=== PATIENT | male | born 1935 | race Caucasian/White ===

== ENCOUNTER → 2019-01-02 | Outpatient (CLI) | payer MEDICARE, BC ==
[~2019-01-02] MED LIST: BACT800T5 PO; PERC5TAB12 PO
--- NOTE | 2019-01-06 20:33 | SLEEPHOME ---
DATE OF PROCEDURE: 01/02/2019 ORDERED BY: Dr. Vázquez Diagnostic home sleep testing was performed due to concern for the obstructive sleep apnea syndrome in this patient with a history of excessive somnolence, snoring and nonrestorative sleep who has comorbidities of hypertension and diabetes. For testing a nocturnal T3 respiratory monitoring device was used. Continuous record was made of pulse, oxygen saturation, airflow, chest, abdominal strain and body position. 10 hours and 59 minutes of data were reviewed. There were 7 hours and 46 minutes marked as time in bed. During the interval marked time in bed there were 415 respiratory events identified of 10 seconds in duration or greater for a respiratory event index of 53.3. The events were of various pattern; 169 central events were appreciated, there were 45 mixed events, 81 pure apneas and 120 hypopneas. Baseline pulse rate was 68 beats per minute, pulse rate ranged 46-92. Baseline saturation was 89%. Lowest oxygen saturation recorded 74%. Testing was performed in both the supine and nonsupine positions. IMPRESSION: Abnormal home sleep testing with repetitive respiratory events and oxygen desaturations to 74% with a respiratory event index of 53.3 is consistent with the obstructive sleep apnea syndrome. Given the frequency of central events identified, a more complex disorder may be present. RECOMMENDATIONS: The patient should be encouraged to undergo a formal sleep evaluation.
== END ==
LOC: M SLEEP HO 11:17
PROVIDERS: ATTEND Internal Medicine Pulmonary Disease
DX: G47.30 Sleep apnea, unspecified (principal)

== ENCOUNTER → 2019-02-14 | Outpatient (CLI) | payer MEDICARE, BC ==
--- NOTE | 2019-02-21 12:48 | SLEEPCENT ---
DATE OF STUDY: 02/14/2019 ORDERING PROVIDER: Dr. Vázquez Nocturnal polysomnography was performed for evaluation of sleep physiology in this patient with a history consistent with the obstructive sleep apnea syndrome on home testing supporting that diagnosis. 8 hours and 29 minutes of data were reviewed. There were 403.5 minutes of sleep identified. Sleep latency was normal at 24 minutes. Rapid eye movement (REM) latency was short at 55 minutes. Sleep architecture showed fragmentation. Overall sleep efficiency was 80.2%. Improvement was seen late in the study after interventions were made. The electrocardiogram showed sinus rhythm with an average heart rate of beats per minute. Electroencephalogram (EEG) showed reasonably normal waveforms for awake and sleep. There were 175 respiratory events identified of 10 seconds in duration or greater for an apnea-hypopnea index of 26. Events were associated with oxygen desaturations into the low 80s, having clearly established the presence of obstructive sleep apnea syndrome early in testing. The study was stopped shortly after midnight for the application of pressure therapy. The patient was fit with a [employer]Med AirFit F20 full face mask of large size. 4 cm of water pressure were applied to the circuit, and the lights were extinguished. Pressure titration proceeded; and despite optimal mask fit and minimal air leak, progressive increases in continuous positive airway pressure (CPAP) pressure were insufficient to address the patient's events. The patient was changed to a bilevel device. Recurrence of central apneas prompted the addition of a backup rate. Subsequent hypoxemia prompted the addition of supplemental oxygen. An optimal pressure therapy was unable to be identified during this testing. Best sleep, however, was seen on a bilevel pressure device, inspiratory 12 over expiratory 8 with a backup rate of 6 and 2 liters of oxygen bled through the system. 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 Apnea-hypopnea index 26, 175 respiratory events, 77 of which were central or mixed. RECOMMENDATION: Nightly use of bilevel pressure therapy, inspiratory 12 over expiratory 8 with a backup rate of 6 and 2 liters of oxygen. Given the difficulty the patient had during titration, close clinical followup, and it was recommended should symptoms persist, a low threshold for full-night re-titration should be considered.
== END ==
LOC: M SLEEP 19:18
PROVIDERS: ATTEND Internal Medicine Pulmonary Disease
DX: G47.30 Sleep apnea, unspecified (principal)

== ENCOUNTER → 2019-07-12 | Outpatient (REF) | payer MEDICARE, BC ==
[2019-07-12 13:53] LABS: ALBUMIN 3.8 GM/DL (3.2-5.2); CALCIUM LEVEL 8.5 MG/DL (8.8-10.2); CREATININE FOR GFR 1.31 MG/DL (0.70-1.30); GLOMERULAR FILTRATION RATE 55.9 (>35); MAGNESIUM LEVEL 2.1 MG/DL (1.8-2.4); PHOSPHORUS LEVEL 3.5 MG/DL (2.5-4.9); POTASSIUM SERUM 4.5 MEQ/L (3.5-5.1); URIC ACID 3.7 MG/DL (3.5-7.2)
== END ==
LOC: M LAB REF 13:05
PROVIDERS: ATTEND Internal Medicine Nephrology
DX: N18.3 Chronic kidney disease, stage 3 (moderate) (principal); E11.22 Type 2 diabetes mellitus with diabetic chronic kidney disease; D63.1 Anemia in chronic kidney disease
CPT/HCPCS: 51798; 80069; 83735; 84550; G0463

== ENCOUNTER → 2020-04-17 | Outpatient (REF) | payer MEDICARE, BC ==
[2020-04-17 17:59] LABS: APPEARANCE, URINE CLEAR (CLEAR); BACTERIA, URINE AUTO NEGATIVE (NEGATIVE); BILIRUBIN, URINE AUTO NEGATIVE (NEGATIVE); BLOOD, URINE BLOOD NEGATIVE (NEGATIVE); COLOR, URINE YELLOW (YELLOW); GLUCOSE, URINE (UA) AUTO NEGATIVE (NEGATIVE); KETONE, URINE AUTO NEGATIVE (NEGATIVE); LEUKOCYTE ESTERASE, URINE AUTO NEGATIVE (NEGATIVE); NITRITE, URINE AUTO NEGATIVE (NEGATIVE); PROTEIN, URINE AUTO NEGATIVE (NEGATIVE); RBC, URINE AUTO 1 /HPF (0-3); SPECIFIC GRAVITY URINE AUTO 1.009 (1.002-1.035); SQUAMOUS EPITHELIAL CELL UR AU 0 /HPF (0-6); UROBILINOGEN, URINE AUTO 0.2 mg/dL (0.0-2.0); WBC, URINE AUTO 1 /HPF (0-3)
== END ==
LOC: M SMT 17:05
PROVIDERS: ATTEND Nurse Practitioner Family
DX: R32 Unspecified urinary incontinence (principal)
CPT/HCPCS: 51798; 81001; 87086; G0463

== ENCOUNTER → 2021-05-20 | Outpatient (REF) | payer MEDICARE, BC | LOC: M LAB REF 16:49 | PROVIDERS: ATTEND Nurse Practitioner Family | DX: N39.0 Urinary tract infection, site not specified (principal); N18.31 Chronic kidney disease, stage 3a ==

== ENCOUNTER → 2021-11-18 | Outpatient (REF) | payer MEDICARE, BC ==
[2021-11-18 19:43] LABS: BACTERIA, URINE AUTO 1+ (NEGATIVE); MUCUS, URINE SMALL (NEGATIVE); RBC, URINE AUTO 76 /HPF (0-3); SQUAMOUS EPITHELIAL CELL UR AU 1 /HPF (0-6); TRANSITIONAL EPITHELIAL AUTO <1 /HPF; WBC, URINE AUTO 31 /HPF (0-3)
== END ==
LOC: M LAB REF 16:40
PROVIDERS: ATTEND Nurse Practitioner Family
DX: R31.9 Hematuria, unspecified (principal)

== ENCOUNTER → 2022-07-12 | Outpatient (CLI) | payer MEDICARE, BC ==
[~2022-07-12] MED LIST changes: +ALLE180T33 PO; +ASPI81TA26 PO; +BREO1INH INH; +COMBAER6 INH; +DOCU-153 PO; +FINA5TAB2 PO; +FLOM0.4C39 PO; +GABA-1171 PO; +INCR1INH INH; +JARD1TAB PO; +LEXA1TAB PO; +OMEP1CAP73 PO; +OXYB-54 PO; +PENT400T47 PO; +PX S0.65; +ROSU10TA6 PO; +SYNT50TA PO; +TOUJ300I2 SC; +TRUL10IN SC; +VENTAER INH; +prevagen PO
== END ==
LOC: M LABSMTC 10:22
PROVIDERS: ATTEND Anesthesiology
DX: Z01.812 Encounter for preprocedural laboratory examination (principal); Z20.822 Contact with and (suspected) exposure to COVID-19

== ENCOUNTER 2022-07-16 12:56 | Day surgery (SDC) | payer MEDICARE, BC ==
[~2022-07-16] VITALS: Ht 175.3 cm; Wt 83.4 kg
[~2022-07-16 12:56] MED LIST changes: +ceFAZolin SOD 2 GM in IV 1 EA IV ONE
[2022-07-16] MEDS ORDERED: LIDOCAINE 2% 100MG/5ML SDV (FOR ANES.) As Ordered ONE (13:12)
[2022-07-16] MEDS ORDERED: propofoL 200 MG/20 ML VIAL As Ordered ONE (13:12)
[2022-07-16] MEDS ORDERED: ONDANSETRON 4MG 2ML VIAL As Ordered ONE (13:12)
[2022-07-16] MEDS ORDERED: MIDAZOLAM INJ 2MG/2ML VIAL As Ordered ONE (13:13)
[2022-07-16] MEDS ORDERED: fentaNYL 100 MCG/2 ML INJECTION As Ordered ONE (13:16)
[2022-07-16] MEDS ORDERED: ROCURONIUM BROMIDE 50MG/5ML VIAL As Ordered ONE (13:17)
[2022-07-16] MEDS ORDERED: LR 1,000 ML IV SCH ×2 (13:25→15:20)
[2022-07-16] MEDS ORDERED: SUGAMMADEX SODIUM 500 MG/5 ML VIAL (BRIDION) As Ordered ONE (13:41)
[2022-07-16] MEDS ORDERED: oxyCODONE 5MG TAB PO PRN (15:20)
[2022-07-16] MEDS ORDERED: fentaNYL 100 MCG/2 ML INJECTION IV PRN (15:20)
[2022-07-16] MEDS ORDERED: ONDANSETRON 4MG 2ML VIAL IV PRN (15:20)
[2022-07-16] MEDS ORDERED: MACR100C43 PO (15:22)
[2022-07-16] MEDS ORDERED: PYRI1TAB5 PO (15:23)
[2022-07-16] MEDS ORDERED: OXYB5TAB10 PO (15:23)
[2022-07-16 17:04] VITALS: BP 133/71
== END 2022-07-16 17:21 | disposition home or self-care (01) ==
LOC: M SDC 12:56
PROVIDERS: ATTEND Urology
DX: C67.9 Malignant neoplasm of bladder, unspecified (principal); I48.91 Unspecified atrial fibrillation; K21.9 Gastro-esophageal reflux disease without esophagitis; J44.9 Chronic obstructive pulmonary disease, unspecified; K44.9 Diaphragmatic hernia without obstruction or gangrene; I10 Essential (primary) hypertension; E11.9 Type 2 diabetes mellitus without complications; Z79.4 Long term (current) use of insulin; Z87.891 Personal history of nicotine dependence; E78.5 Hyperlipidemia, unspecified; Z88.8 Allergy status to other drugs, medicaments and biological substances; Z79.82 Long term (current) use of aspirin; Z79.899 Other long term (current) drug therapy; Z79.51 Long term (current) use of inhaled steroids
CPT/HCPCS: 52240; 88305; J1100; J2405

== ENCOUNTER → 2022-08-07 | Outpatient (REF) | payer MEDICARE, BC ==
[~2022-08-07] MED LIST changes: +MACR100C43 PO; +OXYB5TAB10 PO; +PYRI1TAB5 PO; -ceFAZolin SOD 2 GM in IV 1 EA IV ONE
[2022-08-07 17:23] LABS: APPEARANCE, URINE MANUAL HAZY (CLEAR); COLOR, URINE MANUAL YELLOW (YELLOW)
[2022-08-07 17:24] LABS: BILIRUBIN, URINE MANUAL NEGATIVE (NEGATIVE); BLOOD URINE MANUAL POSITIVE (NEGATIVE); GLUCOSE, URINE (UA) MANUAL 4+(1000 MG/DL) mg/dL (NEGATIVE); KETONE, URINE MANUAL NEGATIVE (NEGATIVE); LEUKOCYTE ESTERASE, URINE MAN POSITIVE (NEGATIVE); NITRITE, URINE MANUAL NEGATIVE (NEGATIVE); PROTEIN, URINE MANUAL NEGATIVE (NEGATIVE); UROBILINOGEN, URINE MANUAL NORMAL (NORMAL)
[2022-08-07 17:37] LABS: BACTERIA, URINE NONE SEEN; HYALINE CAST, URINE NONE SEEN /lpf (0-1); RBC, URINE NONE SEEN /hpf (0-3); SQUAMOUS EPITHELIAL CELL URINE NONE SEEN /hpf (SMALL AMT); WBC, URINE 15-20 /hpf (0-3)
== END ==
LOC: M SMT 16:42
PROVIDERS: ATTEND Physician Assistant
DX: C67.8 Malignant neoplasm of overlapping sites of bladder (principal)

== ENCOUNTER 2024-06-16 01:35 | Emergency (ER) | payer MEDICARE, BC ==
[~2024-06-16] VITALS: Ht 177.8 cm; Wt 85.5 kg
[~2024-06-16 01:35] MED LIST changes: -DOCU-153 PO; -OXYB5TAB10 PO; +OXYB5TAB14 PO; -ROSU10TA6 PO; +ROSU10TA61 PO; +STOO100C30 PO
[2024-06-16 01:38] VITALS: TEMP 97.4
[2024-06-16 03:51] LABS: BASO % 0.4 % (0.0-1.0); EOS # 0.3 10^3/uL (0.0-0.5); EOS % 4.3 % (0.0-3.0); HEMATOCRIT 34.5 % (42.0-52.0); HEMOGLOBIN 11.4 g/dl (13.5-17.5); LYMPH % 13.1 % (24.0-44.0); MEAN CORPUSCULAR HEMOGLOBIN 31.1 pg (27.0-33.0); MONO # 0.6 10^3/uL (0.0-0.8); MONO % 8.1 % (2.0-8.0); NEUTROPHILS # 5.6 10^3/uL (1.5-8.5); NEUTROPHILS % 73.7 % (36.0-66.0); PLATELET COUNT, AUTOMATED 183 10^3/uL (150-450); RED BLOOD COUNT 3.67 10^6/uL (4.30-6.10); WHITE BLOOD COUNT 7.6 10^3/uL (4.0-10.0)
[2024-06-16 04:02] LABS: INR 0.99; PARTIAL THROMBOPLASTIN TIME 28.5 SECONDS (24.8-34.2); PROTHROMBIN TIME 13.4 SECONDS (12.5-14.5)
[2024-06-16 04:16] LABS: CALCIUM LEVEL 8.8 MG/DL (8.3-10.6); CREATININE FOR GFR 1.97 MG/DL (0.70-1.30); GLOMERULAR FILTRATION RATE 34.5 (>35); POTASSIUM SERUM 4.7 MMOL/L (3.5-5.1)
[2024-06-16 04:29] LABS: PROCALCITONIN 0.05 ng/ml
[2024-06-16 05:21] VITALS: BP 182/84; O2SAT 97
== END 2024-06-16 05:25 | disposition home or self-care (01) ==
LOC: M ED 01:35
DX: R31.9 Hematuria, unspecified (principal); K40.90 Unilateral inguinal hernia, without obstruction or gangrene, not specified as recurrent; K21.9 Gastro-esophageal reflux disease without esophagitis; Z86.79 Personal history of other diseases of the circulatory system; Z90.49 Acquired absence of other specified parts of digestive tract; Z79.52 Long term (current) use of systemic steroids; Z79.83 Long term (current) use of bisphosphonates; Z79.899 Other long term (current) drug therapy; Z88.8 Allergy status to other drugs, medicaments and biological substances

== ENCOUNTER → 2025-02-15 | Outpatient (REF) | payer MEDICARE, BC ==
[~2025-02-15] MED LIST changes: -FLOM0.4C39 PO; +TAMS-18 PO
== END ==
LOC: M LAB REF 16:44
PROVIDERS: ATTEND Nurse Practitioner Family
DX: N39.0 Urinary tract infection, site not specified (principal)

== ENCOUNTER → 2025-04-19 | Outpatient (REF) | payer MEDICARE, BC | LOC: M LAB REF 16:31 | PROVIDERS: ATTEND Nurse Practitioner Family | DX: N39.0 Urinary tract infection, site not specified (principal) ==